=== PATIENT | female | born 1965 | race Hispanic/Latino ===

== ENCOUNTER 2017-09-23 15:43 | Inpatient (IN) | payer MEDICAID, OTHER ==
[2017-09-23 15:46] VITALS: BMI 44.1
--- NOTE | 2017-09-23 15:58 | ED PDOC ---
Arrival/HPI - General Time Seen by Provider: 09/23/17 15:45 Historian: Patient - History of Present Illness Narrative History of Present Illness (Text): 09/23/17 15:54 This 52 yo female with pmh asthma, smoker, obesity, presents to this ED c/o sob , wheezing x 3 days. Patient stated her symptoms have worsen today. Patient has been using home albuterol nebulizer. Patient admits smoking cigarettes. Patient denies fever, cp, abdominal pain, recent travel, sick contact, leg swelling, calf pain, dizziness, or abnormal gait. Patient stated she has never been intubated for asthma. Patient stated she has multiple hospital admission for asthma. Time/Duration: Other (see hpi) Context: Home Past Medical History - Provider Review Nursing Documentation Reviewed: Yes Family/Social History - Physician Review Nursing Documentation Reviewed: Yes Family/Social History: Other (noncontributory) Allergies/Home Meds Allergies/Adverse Reactions: Allergies No Known Allergies Allergy (Verified 09/23/17 15:45) Home Medications: Home Meds Medication Instructions Recorded Confirmed Albuterol 0.083% [Albuterol 3 ml IH PRN PRN 09/23/17 09/23/17 Sulfate 3 Ml] Albuterol HFA [Ventolin HFA 90 1 unit NEB PRN PRN 09/23/17 09/23/17 mcg/actuation (8 g)] Review of Systems - Review of Systems Constitutional: Normal. absent: Fatigue, Weight Change, Fevers, Night Sweats Eyes: Normal ENT: Normal Respiratory: SOB, Cough, Wheezing. absent: Sputum Cardiovascular: Normal. absent: Chest Pain, Palpitations Gastrointestinal: Normal. absent: Abdominal Pain, Nausea, Vomiting Genitourinary Female: Normal. absent: Dysuria, Frequency, Hematuria Musculoskeletal: Normal. absent: Back Pain Skin: Normal. absent: Rash Neurological: Normal. absent: Headache, Dizziness, Focal Weakness, Gait Changes , Speech Changes, Facial Droop, Disequilibrium, Seizure Endocrine: Normal Hemo/Lymphatic: Normal Psychiatric: Normal Physical Exam Vital Signs Temp Pulse Resp BP Pulse Ox 09/23/17 20:46 91 H 18 164/92 H 91 L 09/23/17 17:30 97.8 F 18 150/90 92 L 09/23/17 15:45 98.7 F 89 18 100/66 96 Temperature: Afebrile Blood Pressure: Normal Pulse: Regular Respiratory Rate: Normal Appearance: Positive for: Well-Appearing, Non-Toxic, Comfortable Pain Distress: None Mental Status: Positive for: Alert and Oriented X 3 - Systems Exam Head: Present: Atraumatic, Normocephalic Pupils: Present: PERRL Extroacular Muscles: Present: EOMI Conjunctiva: Present: Normal Mouth: Present: Moist Mucous Membranes Neck: Present: Normal Range of Motion. No: Meningeal Signs, MIDLINE TENDERNESS , Paraspinal Tenderness, Lymphadenopathy Respiratory/Chest: Present: Wheezes, Decreased Breath Sounds. No: Respiratory Distress, Accessory Muscle Use, Rales, Retracting, Rhonchi, Tachypneic, Tender to Palpation Cardiovascular: Present: Regular Rate and Rhythm, Normal S1, S2. No: Murmurs Abdomen: Present: Normal Bowel Sounds, Other (obese). No: Tenderness, Distention, Peritoneal Signs Back: Present: Normal Inspection Upper Extremity: Present: Normal Inspection, Normal ROM. No: Cyanosis, Edema Lower Extremity: Present: Normal Inspection, Normal ROM. No: Edema Neurological: Present: GCS=15, CN II-XII Intact, Speech Normal Skin: Present: Warm, Dry, Normal Color. No: Rashes Psychiatric: Present: Alert, Oriented x 3, Normal Insight, Normal Concentration Medical Decision Making ED Course and Treatment: 09/23/17 21:02 Patient stated she still feels wheezing. 09/23/17 21:[address] Elba Guzman regarding patient asthma exacerbation. Patient continues symptoms despite treatment. Dr. Guzman agreed with plan for observation. She recommended to order an ABG. 09/23/17 21:13 Patient agrees with plan for observation Re-evaluation Time: 21:14 Reassessment Condition: Re-examined, Improving,but remains with symptoms - Lab Interpretations Lab Results: 09/23/17 20:01 09/23/17 20:01 Lab Results 09/23/17 20:01: Sodium 133, Potassium 3.8, Chloride 98, Carbon Dioxide 25, Anion Gap 14, BUN 15, Creatinine 0.6 L, Est GFR ( Amer) > 60, Est GFR ( Non-Af Amer) > 60, Random Glucose 281 H, Calcium 9.0, Total Bilirubin 0.3, AST 30, ALT 38, Alkaline Phosphatase 84, Total Protein 7.3, Albumin 4.1, Globulin 3.2, Albumin/Globulin Ratio 1.3 09/23/17 20:01: WBC 7.4, RBC 4.51, Hgb 13.5, Hct 41.6, MCV 92.2, MCH 29.9, MCHC 32.5, RDW 13.5, Plt Count 208, MPV 10.4, Gran % 88.0 H, Lymph % (Auto) 10.4 L, [place] % (Auto) 1.2, Eos % (Auto) 0.0 L, Baso % (Auto) 0.4, Gran # 6.54 H, Lymph # 0.8 L, [place] # 0.1, Eos # 0.0, Baso # 0.03 I have reviewed the lab results: Yes Interpretation: No clinic. lab abnormalty - RAD Interpretation Narrative RAD Interpretations (Text): 09/23/17 16:35 HISTORY: wheezing, cough COMPARISON: No prior. FINDINGS: LUNGS: The lungs are well inflated. There are increased streaky opacities in the lungs and bibasilar atelectasis. No focal consolidation. PLEURA: No significant pleural effusion identified, no pneumothorax apparent. CARDIOVASCULAR: Normal. OSSEOUS STRUCTURES: No significant abnormalities. VISUALIZED UPPER ABDOMEN: Normal. OTHER FINDINGS: None. IMPRESSION: Findings are most compatible with reactive small airway disease/ viral/ atypical pneumonitis. No lobar pneumonia. Radiology Orders: 09/23/17 15:53 CHEST PORTABLE [RAD] Stat - Medication Orders Current Medication Orders: Discontinued Medications Albuterol/Ipratropium (Duoneb 3 Mg/0.5 Mg (3 Ml) Ud) 3 ml IH Q15M RAI Stop: 09/23/17 16:31 Last Admin: 09/23/17 17:00 Dose: 3 ml Magnesium Sulfate 2 gm/ Sodium (Chloride) 104 mls @ 102 mls/hr IVPB ONCE ONE Stop: 09/23/17 19:20 Last Admin: 09/23/17 19:01 Dose: 102 mls/hr eMAR Start Stop Document 09/23/17 19:01 MS (Rec: 09/23/17 19:01 MS [id number]) Intravenous Solution Start Date 09/23/17 Start Time 19:01 End Date 09/23/17 End time 19:31 Total Infusion Time 30 Methylprednisolone (Solu-Medrol) 125 mg IVP STAT STA Stop: 09/23/17 15:53 Last Admin: 09/23/17 16:22 Dose: 125 mg IVP Administration Document 09/23/17 16:22 MS (Rec: 09/23/17 16:22 MS [id number]) Charges for Administration # of IVP Administrations 1 Disposition/Present on Arrival - Present on Arrival Any Indicators Present on Arrival: No History of DVT/PE: No History of Uncontrolled Diabetes: No Urinary Catheter: No History of Decub. Ulcer: No - Disposition Have Diagnosis and Disposition been Completed?: Yes Diagnosis: Asthma exacerbation Disposition: HOSPITALIZED Disposition Time: 21:15 Patient Plan: Observation Condition: STABLE Referrals: Dimitri Nino MD [Primary Care Provider] - Follow up with primary
[2017-09-23] MEDS: Albuterol-Ipratrop 3 mg / 0.5 (3 ml) UD IH SCH ×3 (16:22→17:00)
--- NOTE | 2017-09-23 16:34 | RAD ---
HISTORY: wheezing, cough COMPARISON: No prior. FINDINGS: LUNGS: The lungs are well inflated. There are increased streaky opacities in the lungs and bibasilar atelectasis. No focal consolidation. PLEURA: No significant pleural effusion identified, no pneumothorax apparent. CARDIOVASCULAR: Normal. OSSEOUS STRUCTURES: No significant abnormalities. VISUALIZED UPPER ABDOMEN: Normal. OTHER FINDINGS: None. IMPRESSION: Findings are most compatible with reactive small airway disease/ viral/ atypical pneumonitis. No lobar pneumonia.
[2017-09-23] MEDS ORDERED: Magnesium Sulfate 2 GM in Sodium Chloride 0.9% 100 ML IVPB ONE (18:19)
[2017-09-23 20:16] LABS: BASO # 0.03 K/mm3 (0.0-2.0); BASO % 0.4 % (0.0-3.0); GRAN # 6.54 (1.4-6.5); HEMOGLOBIN 13.5 g/dL (12.0-16.0); LYMPH # 0.8 (1.2-3.4); LYMPH % 10.4 % (22.0-35.0); MEAN CELL VOLUME 92.2 fl (80.0-105.0); MEAN CORPUSCULAR HEMOGLOBIN 29.9 pg (25.0-35.0); MEAN CORPUSCULAR HGB CONC 32.5 g/dl (31.0-37.0); MEAN PLATELET VOLUME 10.4 fl (7.0-11.0); MONO # 0.1 (0.1-0.6); MONO % 1.2 % (1.0-6.0); RBC 4.51 10^6/uL (3.5-6.1); RED CELL DISTRIBUTION WIDTH 13.5 % (11.5-14.5); WHITE BLOOD COUNT 7.4 10^3/ul (4.5-11.0)
[2017-09-23 20:30] LABS: ALB/GLOB RATIO 1.3 (1.1-1.8); ALBUMIN 4.1 g/dL (3.0-4.8); ALT/SGPT 38 U/L (7-56); AST/SGOT 30 U/L (14-36); BLOOD UREA NITROGEN 15 mg/dL (7-21); GFR AFRICAN-AMERICAN > 60; GFR NON-AFRICAN AMERICAN > 60
--- NOTE | 2017-09-23 21:33 | CP.PCM.HP ---
History of Present Illness - History of Present Illness History of Present Illness: CC: SOB Subjective: HPI: Patient is a 52 year old female with a past medical history of asthma who presents to the emergency department for evaluation and treatment of SOB which began 6 days ago after moving from [place]. States that she believes the cold weather triggered her asthma to worsen. Associated with productive cough with clear sputum production which has worsened and become yellow since onset. States that her home albuterol and medrol dose pack have not improved her symptoms. She was advised to come to the ED by her primary care physician after finding her oxygen saturation being in the low 90s. Patient denies intractable headache, fever, chills, dizziness, blurry vision, ringing in the ears, chest pain, abdominal pain, nausea, vomiting, diarrhea, constipation, and urinary symptoms. ROS: 12 point review of systems negative except as indicated in HPI PMHx: asthma and osteoporosis PSHx: tubal ligation and hysterectomy Family Hx: noncontributory Social Hx: social ETOH use, quit tobacco use 2 days ago, smoked 1/3 ppd for 35 years, former marijuana user Medications: Please see medication reconciliation PMD: Dr. Nino Physical Examination: - Constitutional Appears: Non-toxic, No Acute Distress - Head Exam Head Exam: atraumatic, normocephalic - Eye Exam Eye Exam: Normal appearance, PERRL. absent: Scleral icterus - ENT Exam ENT Exam: Mucous Membranes Moist - Neck Exam Neck exam: Normal Inspection - Respiratory Exam Respiratory Exam: diminished breath sounds bilaterally - Cardiovascular Exam Cardiovascular Exam: +S1, +S2. absent: Gallop, JVD - GI/Abdominal Exam GI & Abdominal Exam: Normal Bowel Sounds, absent: Distended, Guarding, Pulsatile Mass, Rebound, Rigid - Extremities Exam Extremities exam: Negative for: calf tenderness - Neurological Exam Neurological exam: Patient is awake, alert, responds to verbal stimuli, answers questions appropriately, follows commands, and moves extremities past midline - Psychiatric Exam Psychiatric exam: Normal Affect, Normal Mood - Skin Skin Exam: warm and dry Assessment and Plan: Patient is a 52 year old female with past medical history of asthma who was admitted for evaluation and treatment of SOB. Acute on Chronic Asthma Exacerbation - duobnebs q6 scheduled - duonebs q2 prn SOB - solumedrol 40mg IV q12 - oxygen supplementation 2 L via NC - azithromycin - claritin - abg pending Tobacco Abuse - nicotine patch offered - smoking cessation advised - patient education provided on dangers of tobacco abuse Prophylaxis - DVT ppx- scds - GI ppx- famotidine Patient case discussed with and plan approved by attending physician. Present on Admission - Present on Admission Any Indicators Present on Admission: No Past Patient History - Past Social History Smoking Status: Light Smoker < 10 Cigarettes Daily - CARDIAC Hx Cardiac Disorders: No - PULMONARY Hx Respiratory Disorders: Yes Hx Asthma: Yes - PSYCHIATRIC Hx Substance Use: No - SURGICAL HISTORY Hx Surgeries: Yes Hx Hysterectomy: Yes Hx Tubal Ligation: Yes - ANESTHESIA Hx Anesthesia: Yes Hx Anesthesia Reactions: No Hx Malignant Hyperthermia: No Meds Allergies/Adverse Reactions: Allergies Allergy/AdvReac Type Severity Reaction Status Date / Time No Known Allergies Allergy Verified 09/23/17 15:45 Results - Vital Signs Recent Vital Signs: Last Vital Signs Temp 97.8 F 09/23/17 17:30 Pulse 91 H 09/23/17 20:46 Resp 18 09/23/17 20:46 BP 164/92 H 09/23/17 20:46 Pulse Ox 91 L 09/23/17 20:46 - Labs Result Diagrams: 09/23/17 20:01 09/23/17 20:01 Labs: Laboratory Results - last 24 hr 09/23/17 09/23/17 20:01 20:01 WBC 7.4 RBC 4.51 Hgb 13.5 Hct 41.6 MCV 92.2 MCH 29.9 MCHC 32.5 RDW 13.5 Plt Count 208 MPV 10.4 Gran % 88.0 H Lymph % (Auto) 10.4 L [place] % (Auto) 1.2 Eos % (Auto) 0.0 L Baso % (Auto) 0.4 Gran # 6.54 H Lymph # 0.8 L [place] # 0.1 Eos # 0.0 Baso # 0.03 Sodium 133 Potassium 3.8 Chloride 98 Carbon Dioxide 25 Anion Gap 14 BUN 15 Creatinine 0.6 L Est GFR ( Amer) > 60 Est GFR (Non-Af Amer) > 60 Random Glucose 281 H Calcium 9.0 Total Bilirubin 0.3 AST 30 ALT 38 Alkaline Phosphatase 84 Total Protein 7.3 Albumin 4.1 Globulin 3.2 Albumin/Globulin Ratio 1.3
[2017-09-23] MEDS ORDERED: Albuterol-Ipratrop 3 mg / 0.5 (3 ml) UD IH PRN (22:03)
[2017-09-23 22:07] LABS: ARTERIAL BLOOD GAS HCO3 23.4 mmol/L (21-28); ARTERIAL BLOOD GAS HEMOGLOBIN 12.4 g/dL (11.7-17.4); ARTERIAL BLOOD GAS O2 CONTENT 16.4 ML/dl (15-23); ARTERIAL BLOOD GAS O2 SAT 96.2 % (95-98); ARTERIAL BLOOD GAS PCO2 36 mm/Hg (35-45); ARTERIAL BLOOD GAS PH 7.42 (7.35-7.45); ARTERIAL BLOOD GAS TCO2 24.5 mmol.L (22-28)
[2017-09-24] MEDS ORDERED: Promethazine/Cod 6.25mg-10mg/5ml Syr UD PO STA (00:34)
[2017-09-24] MEDS: Albuterol-Ipratrop 3 mg / 0.5 (3 ml) UD IH SCH ×4 (02:15→21:49)
[2017-09-24 07:45] LABS: BASO # 0.01 K/mm3 (0.0-2.0); BASO % 0.1 % (0.0-3.0); GRAN # 5.58 (1.4-6.5); GRAN % 71.6 % (50.0-68.0); HEMOGLOBIN 13.4 g/dL (12.0-16.0); LYMPH # 1.5 (1.2-3.4); LYMPH % 19.3 % (22.0-35.0); MEAN CELL VOLUME 91.9 fl (80.0-105.0); MEAN CORPUSCULAR HEMOGLOBIN 29.5 pg (25.0-35.0); MEAN CORPUSCULAR HGB CONC 32.1 g/dl (31.0-37.0); MEAN PLATELET VOLUME 10.6 fl (7.0-11.0); MONO # 0.7 (0.1-0.6); RBC 4.55 10^6/uL (3.5-6.1); RED CELL DISTRIBUTION WIDTH 13.6 % (11.5-14.5); WHITE BLOOD COUNT 7.8 10^3/ul (4.5-11.0)
[2017-09-24 07:59] LABS: ALB/GLOB RATIO 1.2 (1.1-1.8); ALBUMIN 4.1 g/dL (3.0-4.8); ALT/SGPT 33 U/L (7-56); AST/SGOT 26 U/L (14-36); BLOOD UREA NITROGEN 14 mg/dL (7-21); CALCIUM 9.4 mg/dL (8.4-10.5); GFR AFRICAN-AMERICAN > 60; GFR NON-AFRICAN AMERICAN > 60
[2017-09-24 09:42] VITALS: RESP 20
[2017-09-24] MEDS: Benzocaine/Menthol (Cepacol) Lozenge MT PRN ×2 (10:49→15:19)
[2017-09-24] MEDS: cefTRIAXone 1 gm 1 GM/100 ML BAG IVPB SCH (10:49)
[2017-09-24] MEDS: MethylPREDNISolone 40 mg Vial IVP SCH ×2 (10:49→22:09)
[2017-09-24] MEDS: guaiFENesin 200 mg/10 ml Syrup UD PO PRN ×3 (10:49→22:09)
--- NOTE | 2017-09-24 14:12 | CP.PCM.PN ---
<Nico Dumont - Last Filed: 09/24/17 14:36> Subjective - Date & Time of Evaluation Date of Evaluation: 09/24/17 Time of Evaluation: 14:07 - Subjective Subjective: MEDICINE PROGRESS NOTE Patient seen and assessed at bedside. Patient reports that her presenting SOB has mildly improved but that her non-productive cough with associated chest wall tenderness and throat irritation have persisted since the effects of the cough medication provided in the ED were no longer noticeable. Otherwise, patient has no new complaints. She denies fever, chills, headache, changes in his vision, palpitations, syncope, dizziness, sputum production, hemoptysis, abdominal pain, N/V, burning/pain with urination, skin changes or any numbness/ tingling/weakness of any extremity. Objective - Vital Signs/Intake and Output Vital Signs (last 24 hours): Temp Pulse Resp BP Pulse Ox 98.6 F 90 20 152/83 H 90 L 09/24/17 08:00 09/24/17 08:00 09/24/17 08:00 09/24/17 08:00 09/24/17 08:00 - Medications Medications: Current Medications Acetaminophen (Tylenol 325mg Tab) 650 mg PO Q4H PRN PRN Reason: Fever >100.4 F Acetaminophen (Tylenol 325mg Tab) 650 mg PO Q4 PRN PRN Reason: Pain, moderate (4-7) Acetylcysteine (Acetylcysteine 20%) 4 ml IH [id number] [facility] Stop: 09/25/17 08:01 Albuterol/Ipratropium (Duoneb 3 Mg/0.5 Mg (3 Ml) Ud) 3 ml IH [id number] [facility] Last Admin: 09/24/17 08:13 Dose: 3 ml Albuterol/Ipratropium (Duoneb 3 Mg/0.5 Mg (3 Ml) Ud) 3 ml IH Q2H PRN PRN Reason: Shortness of Breath Last Admin: 09/24/17 01:17 Dose: 3 ml Azithromycin (Zithromax) 500 mg PO DAILY RAI PRN Reason: Protocol Last Admin: 09/24/17 10:49 Dose: 500 mg Benzocaine/Menthol (Cepacol Sore Throat) 1 chiquis MT Q2H PRN PRN Reason: Sore Throat Last Admin: 09/24/17 10:49 Dose: 1 chiquis Famotidine (Pepcid) 40 mg PO HS RAI Guaifenesin (Robitussin) 200 mg PO Q4H PRN PRN Reason: Cough and congestion Last Admin: 09/24/17 10:49 Dose: 200 mg Ceftriaxone Sodium (Rocephin 1 Gram Ivpb) 1 gm in 100 mls @ 100 mls/hr IVPB DAILY RAI PRN Reason: Protocol Last Admin: 09/24/17 10:49 Dose: 100 mls/hr Ibuprofen (Motrin Tab) 400 mg PO Q6H PRN PRN Reason: Pain, moderate (4-7) Loratadine (Claritin) 10 mg PO DAILY RAI Methylprednisolone (Solu-Medrol) 40 mg IVP Q12 RAI Last Admin: 09/24/17 10:49 Dose: 40 mg Nicotine (Nicoderm Cq) 1 patch TD DAILY PRN PRN Reason: URGE TO SMOKE - Constitutional Appears: Non-toxic - Head Exam Head Exam: ATRAUMATIC, NORMAL INSPECTION, NORMOCEPHALIC - Eye Exam Eye Exam: EOMI, Normal appearance, PERRL Pupil Exam: NORMAL ACCOMODATION, PERRL - ENT Exam ENT Exam: Mucous Membranes Moist, Normal Exam - Neck Exam Neck Exam: Full ROM, Normal Inspection. absent: Lymphadenopathy - Respiratory Exam Respiratory Exam: Accessory Muscle Use, Chest Wall Tenderness, Wheezes ( Espiratory; Diffuse). absent: Decreased Breath Sounds, Clear to Ausculation Bilateral, Prolonged Expiratory Phase, Rales, Rhonchi, Respiratory Distress, Stridor, NORMAL BREATHING PATTERN - Cardiovascular Exam Cardiovascular Exam: REGULAR RHYTHM, RRR, +S1, +S2. absent: Bradycardia, Tachycardia, Clicks, Diastolic murmur, Gallop, Irregular Rhythm, JVD, Rubs, +S4 , Murmur - GI/Abdominal Exam GI & Abdominal Exam: Soft, Normal Bowel Sounds. absent: Bruit, Distended, Firm , Guarding, Rigid, Tenderness, Diminished Bowel Sounds, Hernia, Hyperactive Bowel Sounds, Hypoactive Bowel Sounds, Organomegaly, Pulsatile Mass, Rebound, Mass - Extremities Exam Extremities Exam: Full ROM, Normal Capillary Refill, Normal Inspection. absent : Calf Tenderness, Joint Swelling, Pedal Edema, Tenderness - Back Exam Back Exam: Full ROM, NORMAL INSPECTION. absent: CVA tenderness (L), CVA tenderness (R), muscle spasm, paraspinal tenderness, rash noted, tenderness, vertebral tenderness - Neurological Exam Neurological Exam: Alert, Awake, CN II-XII Intact, Oriented x3 - Psychiatric Exam Psychiatric exam: Normal Affect, Normal Mood - Skin Skin Exam: Dry, Intact, Normal Color, Warm Assessment and Plan - Assessment and Plan (Free Text) Assessment: Patient is a 52 year old female with past medical history of asthma who was admitted for evaluation and treatment of SOB likely secondary to an exacerbation of her asthma. Plan: 1. Acute Asthma Exacerbation -Chest X-Ray showing increased streaky opacities in the lungs with bibasilar atelectasis, most compatible with reactive small airway disease or possible viral/atypical pneumonitis -ABG showing mild hypoxia on room air -Sputum cultures pending -IV Zithromax and Rocephin for empiric coverage -Duonebs Q6RESP RAI and Q2RESP PRN -IV Solu-Medrol 40mg IV Q12H -Acetylcysteine 20% [id number] (4 doses) -Singulair, Claritin and Pepcid PO -Robitussin PRN for cough and Motrin PRN for pain associated with cough -Cepacol chiquis PRN for throat irritation -Tylenol PRN for fever -Continue supplemental oxygen via NC at 2L/min 2. Tobacco Abuse -Nicotine patch PRN -Patient education provided of harmful effects of tobacco use and smoking cessation strongly advised with patient verbalizing understanding GI Prophylaxis: Pepcid DVT Prophylaxis: SCD's Diet: Heart Healthy Patient seen and case discussed with attending, Dr. Guzman. <Amarilis Guzman - Last Filed: 09/24/17 15:09> Objective - Vital Signs/Intake and Output Vital Signs (last 24 hours): Temp Pulse Resp BP Pulse Ox 98.6 F 90 20 152/83 H 90 L 09/24/17 08:00 09/24/17 08:00 09/24/17 08:00 09/24/17 08:00 09/24/17 08:00 - Medications Medications: Current Medications Acetaminophen (Tylenol 325mg Tab) 650 mg PO Q4H PRN PRN Reason: Fever >100.4 F Acetaminophen (Tylenol 325mg Tab) 650 mg PO Q4 PRN PRN Reason: Pain, moderate (4-7) Acetylcysteine (Acetylcysteine 20%) 4 ml IH [id number] RAI Stop: 09/25/17 08:01 Last Admin: 09/24/17 14:14 Dose: Not Given Albuterol/Ipratropium (Duoneb 3 Mg/0.5 Mg (3 Ml) Ud) 3 ml IH [id number] [facility] Last Admin: 09/24/17 14:10 Dose: 3 ml Albuterol/Ipratropium (Duoneb 3 Mg/0.5 Mg (3 Ml) Ud) 3 ml IH Q2H PRN PRN Reason: Shortness of Breath Last Admin: 09/24/17 01:17 Dose: 3 ml Azithromycin (Zithromax) 500 mg PO DAILY RAI PRN Reason: Protocol Last Admin: 09/24/17 10:49 Dose: 500 mg Benzocaine/Menthol (Cepacol Sore Throat) 1 chiquis MT Q2H PRN PRN Reason: Sore Throat Last Admin: 09/24/17 10:49 Dose: 1 chiquis Famotidine (Pepcid) 40 mg PO HS [facility] Guaifenesin (Robitussin) 200 mg PO Q4H PRN PRN Reason: Cough and congestion Last Admin: 09/24/17 10:49 Dose: 200 mg Ceftriaxone Sodium (Rocephin 1 Gram Ivpb) 1 gm in 100 mls @ 100 mls/hr IVPB DAILY [facility] PRN Reason: Protocol Last Admin: 09/24/17 10:49 Dose: 100 mls/hr Ibuprofen (Motrin Tab) 400 mg PO Q6H PRN PRN Reason: Pain, moderate (4-7) Loratadine (Claritin) 10 mg PO DAILY [facility] Methylprednisolone (Solu-Medrol) 40 mg IVP Q12 [facility] Last Admin: 09/24/17 10:49 Dose: 40 mg Montelukast Sodium (Singulair) 10 mg PO HS [facility] Nicotine (Nicoderm Cq) 1 patch TD DAILY PRN PRN Reason: URGE TO SMOKE Attending/Attestation - Attestation I have personally seen and examined this patient.: Yes I have fully participated in the care of the patient.: Yes I have reviewed all pertinent clinical information, including history, physical exam and plan: Yes Notes (Text): I have seen and examined the patient at bedside. Agree with the above note with the following additions/ exceptions: Briefly this is 52 year old female with history of asthma, tobacco use who failed outpatient asthma treatment who was admitted for asthma/ COPD exacerbation. Patient still not able to take deep breath and has bilateral wheezing. Continue duonebs, solumedrol, zithromax and add rocephin, robitussin, mucomyst and singulair. Tobacco cessation counselling provided. Upon discharge patient will follow up with Dr Nino. Dr Amarilis Guzman
[2017-09-24] MEDS: Acetylcysteine 20% Inhal Soln (4ml) IH SCH ×2 (14:14→21:41)
[2017-09-25] MEDS: Albuterol-Ipratrop 3 mg / 0.5 (3 ml) UD IH SCH ×5 (01:44→21:15)
[2017-09-25] MEDS: Acetylcysteine 20% Inhal Soln (4ml) IH SCH ×2 (01:44→08:13)
[2017-09-25 07:24] LABS: BASO # 0.04 K/mm3 (0.0-2.0); BASO % 0.4 % (0.0-3.0); GRAN # 7.84 (1.4-6.5); GRAN % 74.9 % (50.0-68.0); HEMOGLOBIN 13.8 g/dL (12.0-16.0); LYMPH % 19.2 % (22.0-35.0); MEAN CELL VOLUME 92.1 fl (80.0-105.0); MEAN CORPUSCULAR HEMOGLOBIN 29.4 pg (25.0-35.0); MEAN CORPUSCULAR HGB CONC 31.9 g/dl (31.0-37.0); MEAN PLATELET VOLUME 10.8 fl (7.0-11.0); MONO # 0.6 (0.1-0.6); MONO % 5.5 % (1.0-6.0); RBC 4.69 10^6/uL (3.5-6.1); RED CELL DISTRIBUTION WIDTH 13.7 % (11.5-14.5); WHITE BLOOD COUNT 10.5 10^3/ul (4.5-11.0)
[2017-09-25 07:48] LABS: ALB/GLOB RATIO 1.2 (1.1-1.8); ALBUMIN 4.2 g/dL (3.0-4.8); ALT/SGPT 35 U/L (7-56); AST/SGOT 33 U/L (14-36); BLOOD UREA NITROGEN 19 mg/dL (7-21); CALCIUM 9.6 mg/dL (8.4-10.5); GFR AFRICAN-AMERICAN > 60; GFR NON-AFRICAN AMERICAN > 60
[2017-09-25] MEDS: Benzocaine/Menthol (Cepacol) Lozenge MT PRN ×3 (09:19→23:03)
[2017-09-25] MEDS: cefTRIAXone 1 gm 1 GM/100 ML BAG IVPB SCH (09:20)
[2017-09-25] MEDS: guaiFENesin 200 mg/10 ml Syrup UD PO PRN ×3 (09:20→23:02)
[2017-09-25] MEDS: MethylPREDNISolone 40 mg Vial IVP SCH ×2 (09:21→23:01)
--- NOTE | 2017-09-25 11:35 | CP.PCM.PN ---
<Nico Dumont - Last Filed: 09/25/17 11:31> Subjective - Date & Time of Evaluation Date of Evaluation: 09/25/17 Time of Evaluation: 11:31 - Subjective Subjective: MEDICINE PROGRESS NOTE Patient seen and assessed at bedside. No acute events were noted overnight by nursing staff or patient. Patient endorses that her SOB, cough and chest tightness have resolved to a significant degree with current therapy. She reports that she has started to produce more sputum and this has "helped open up her airway". She describes this as a thick yellow sputum with no reports of dark black, brown or red colored sputum. She denies fever, chills, headache, changes in his vision, chest tightness, palpitations, syncope, dizziness, hemoptysis, abdominal pain, N/V, burning/pain with urination, skin changes or any numbness/tingling/weakness of any extremity. Objective - Vital Signs/Intake and Output Vital Signs (last 24 hours): Temp Pulse Resp BP Pulse Ox 97.7 F 86 20 158/86 H 94 L 09/25/17 07:30 09/25/17 07:30 09/25/17 07:30 09/25/17 07:30 09/25/17 07:30 Intake and Output: 09/25/17 09/25/17 06:59 18:59 Intake Total 600 360 Balance 600 360 - Medications Medications: Current Medications Acetaminophen (Tylenol 325mg Tab) 650 mg PO Q4H PRN PRN Reason: Fever >100.4 F Acetaminophen (Tylenol 325mg Tab) 650 mg PO Q4 PRN PRN Reason: Pain, moderate (4-7) Albuterol/Ipratropium (Duoneb 3 Mg/0.5 Mg (3 Ml) Ud) 3 ml IH Q2H PRN PRN Reason: Shortness of Breath Last Admin: 09/24/17 01:17 Dose: 3 ml Albuterol/Ipratropium (Duoneb 3 Mg/0.5 Mg (3 Ml) Ud) 3 ml IH [id number] RAI Azithromycin (Zithromax) 500 mg PO DAILY RAI PRN Reason: Protocol Last Admin: 09/25/17 09:20 Dose: 500 mg Benzocaine/Menthol (Cepacol Sore Throat) 1 chiquis MT Q2H PRN PRN Reason: Sore Throat Last Admin: 09/25/17 09:19 Dose: 1 chiquis Famotidine (Pepcid) 40 mg PO HS [facility] Last Admin: 09/24/17 22:09 Dose: 40 mg Guaifenesin (Robitussin) 200 mg PO Q4H PRN PRN Reason: Cough and congestion Last Admin: 09/25/17 09:20 Dose: 200 mg Ceftriaxone Sodium (Rocephin 1 Gram Ivpb) 1 gm in 100 mls @ 100 mls/hr IVPB DAILY [facility] PRN Reason: Protocol Last Admin: 09/25/17 09:20 Dose: 100 mls/hr Ibuprofen (Motrin Tab) 400 mg PO Q6H PRN PRN Reason: Pain, moderate (4-7) Loratadine (Claritin) 10 mg PO DAILY [facility] Last Admin: 09/25/17 09:20 Dose: 10 mg Methylprednisolone (Solu-Medrol) 40 mg IVP Q12 [facility] Last Admin: 09/25/17 09:21 Dose: 40 mg Montelukast Sodium (Singulair) 10 mg PO [facility] Last Admin: 09/24/17 22:13 Dose: 10 mg Nicotine (Nicoderm Cq) 1 patch TD DAILY PRN PRN Reason: URGE TO SMOKE Last Admin: 09/24/17 15:19 Dose: 1 patch Sodium Chloride ([place] Nasal [place]) 1 ml NS Q2H PRN PRN Reason: Nasal congestion Last Admin: 09/25/17 09:20 Dose: 1 spr - Labs Labs: 09/25/17 06:15 09/25/17 06:15 - Constitutional Appears: Non-toxic, No Acute Distress - Head Exam Head Exam: ATRAUMATIC, NORMAL INSPECTION, NORMOCEPHALIC - Eye Exam Eye Exam: EOMI, Normal appearance, PERRL Pupil Exam: NORMAL ACCOMODATION, PERRL - ENT Exam ENT Exam: Mucous Membranes Moist, Normal Exam, Normal External Ear Exam, Normal Oropharynx - Neck Exam Neck Exam: Full ROM, Normal Inspection. absent: Lymphadenopathy, Meningismus - Respiratory Exam Respiratory Exam: Wheezes (Expiratory; diffuse bilaterally). absent: Accessory Muscle Use, Chest Wall Tenderness, Decreased Breath Sounds, Clear to Ausculation Bilateral, Prolonged Expiratory Phase, Rales, Rhonchi, Respiratory Distress, Stridor, NORMAL BREATHING PATTERN - Cardiovascular Exam Cardiovascular Exam: REGULAR RHYTHM, RRR, +S1, +S2. absent: Bradycardia, Tachycardia, Clicks, Diastolic murmur, Gallop, Irregular Rhythm, JVD, Rubs, +S4 , Murmur - GI/Abdominal Exam GI & Abdominal Exam: Soft, Normal Bowel Sounds. absent: Bruit, Distended, Firm , Guarding, Rigid, Tenderness, Diminished Bowel Sounds, Hernia, Hyperactive Bowel Sounds, Hypoactive Bowel Sounds, Organomegaly, Pulsatile Mass, Rebound, Mass - Extremities Exam Extremities Exam: Full ROM, Normal Capillary Refill, Normal Inspection. absent : Calf Tenderness, Joint Swelling, Pedal Edema, Tenderness - Back Exam Back Exam: Full ROM, NORMAL INSPECTION. absent: CVA tenderness (L), CVA tenderness (R), muscle spasm, paraspinal tenderness, rash noted, tenderness, vertebral tenderness - Neurological Exam Neurological Exam: Alert, Awake, CN II-XII Intact, Normal Gait, Oriented x3 - Psychiatric Exam Psychiatric exam: Normal Affect, Normal Mood - Skin Skin Exam: Dry, Intact, Normal Color, Warm Assessment and Plan - Assessment and Plan (Free Text) Assessment: Patient is a 52 year old female with past medical history of asthma who was admitted for evaluation and treatment of SOB likely secondary to an exacerbation of her asthma with failed outpatient therapy. Patients respiratory status and exam have improved, however there continues to be bilateral wheezing. Plan: 1. Acute Asthma Exacerbation -Chest X-Ray showing increased streaky opacities in the lungs with bibasilar atelectasis, most compatible with reactive small airway disease or possible viral/atypical pneumonitis -ABG showing mild hypoxia on room air -Sputum cultures pending -IV Zithromax and Rocephin for empiric coverage -Duonebs Q4RESP RAI and Q2RESP PRN -Continue IV Solu-Medrol 40mg IV Q12H; Dose will be tapered as patients respiratory status improves -Completed 4 doses of Acetylcysteine 20% -Continue Singulair, Claritin and Pepcid PO -Robitussin PRN for cough and Motrin PRN for pain associated with cough -Cepacol chiquis PRN for throat irritation -Tylenol PRN for fever -Continue supplemental oxygen via NC at 2L/min 2. Tobacco Abuse -Nicotine patch PRN -Patient education provided of harmful effects of tobacco use and smoking cessation strongly advised with patient verbalizing understanding GI Prophylaxis: Pepcid DVT Prophylaxis: SCD's Diet: Heart Healthy Patient seen and case discussed with attending, Dr. Guzman. <Amarilis Guzman - Last Filed: 09/25/17 15:51> Objective - Vital Signs/Intake and Output Vital Signs (last 24 hours): Temp Pulse Resp BP Pulse Ox 97.7 F 86 20 158/86 H 94 L 09/25/17 07:30 09/25/17 07:30 09/25/17 07:30 09/25/17 07:30 09/25/17 07:30 Intake and Output: 09/25/17 09/25/17 06:59 18:59 Intake Total 600 1080 Balance 600 1080 - Medications Medications: Current Medications Acetaminophen (Tylenol 325mg Tab) 650 mg PO Q4H PRN PRN Reason: Fever >100.4 F Acetaminophen (Tylenol 325mg Tab) 650 mg PO Q4 PRN PRN Reason: Pain, moderate (4-7) Albuterol/Ipratropium (Duoneb 3 Mg/0.5 Mg (3 Ml) Ud) 3 ml IH Q2H PRN PRN Reason: Shortness of Breath Last Admin: 09/24/17 01:17 Dose: 3 ml Albuterol/Ipratropium (Duoneb 3 Mg/0.5 Mg (3 Ml) Ud) 3 ml IH [id number] RAI Last Admin: 09/25/17 13:47 Dose: Not Given Azithromycin (Zithromax) 500 mg PO DAILY RAI PRN Reason: Protocol Last Admin: 09/25/17 09:20 Dose: 500 mg Benzocaine/Menthol (Cepacol Sore Throat) 1 chiquis MT Q2H PRN PRN Reason: Sore Throat Last Admin: 09/25/17 15:10 Dose: 1 chiquis Famotidine (Pepcid) 40 mg PO HS [facility] Last Admin: 09/24/17 22:09 Dose: 40 mg Guaifenesin (Robitussin) 200 mg PO Q4H PRN PRN Reason: Cough and congestion Last Admin: 09/25/17 15:10 Dose: 200 mg Ceftriaxone Sodium (Rocephin 1 Gram Ivpb) 1 gm in 100 mls @ 100 mls/hr IVPB DAILY [facility]I PRN Reason: Protocol Last Admin: 09/25/17 09:20 Dose: 100 mls/hr Ibuprofen (Motrin Tab) 400 mg PO Q6H PRN PRN Reason: Pain, moderate (4-7) Loratadine (Claritin) 10 mg PO DAILY [facility] Last Admin: 09/25/17 09:20 Dose: 10 mg Methylprednisolone (Solu-Medrol) 40 mg IVP Q12 [facility] Last Admin: 09/25/17 09:21 Dose: 40 mg Montelukast Sodium (Singulair) 10 mg PO HS [facility] Last Admin: 09/24/17 22:13 Dose: 10 mg Nicotine (Nicoderm Cq) 1 patch TD DAILY PRN PRN Reason: URGE TO SMOKE Last Admin: 09/24/17 15:19 Dose: 1 patch Sodium Chloride ([place] Nasal [place]) 1 ml NS Q2H PRN PRN Reason: Nasal congestion Last Admin: 09/25/17 09:20 Dose: 1 spr - Labs Labs: 09/25/17 06:15 09/25/17 06:15 Attending/Attestation - Attestation I have personally seen and examined this patient.: Yes I have fully participated in the care of the patient.: Yes I have reviewed all pertinent clinical information, including history, physical exam and plan: Yes Notes (Text): I have seen and examined the patient at bedside. Agree with the above note with the following additions/ exceptions: Briefly this is 52 year old female with history of asthma, tobacco use who failed outpatient asthma treatment who was admitted for asthma/ COPD exacerbation. Patient reports that she feels slightly better. She is able to take deep breath and is not coughing as much. Still have bilateral wheezing. Denies post tussive vomiting, fever, chills or any other complaints. Continue duonebs, solumedrol, zithromax and add rocephin, robitussin , mucomyst and singulair. Tobacco cessation counselling provided. Upon discharge patient will follow up with Dr Nino. Dr Amarilis Guzman
[2017-09-26 08:05] LABS: BASO # 0.02 K/mm3 (0.0-2.0); BASO % 0.2 % (0.0-3.0); GRAN # 9.46 (1.4-6.5); GRAN % 75.3 % (50.0-68.0); HEMOGLOBIN 14.6 g/dL (12.0-16.0); LYMPH # 2.5 (1.2-3.4); LYMPH % 19.7 % (22.0-35.0); MEAN CELL VOLUME 91.9 fl (80.0-105.0); MEAN CORPUSCULAR HEMOGLOBIN 29.7 pg (25.0-35.0); MEAN CORPUSCULAR HGB CONC 32.3 g/dl (31.0-37.0); MEAN PLATELET VOLUME 10.5 fl (7.0-11.0); MONO # 0.6 (0.1-0.6); MONO % 4.8 % (1.0-6.0); RBC 4.92 10^6/uL (3.5-6.1); RED CELL DISTRIBUTION WIDTH 13.5 % (11.5-14.5); WHITE BLOOD COUNT 12.6 10^3/ul (4.5-11.0)
[2017-09-26] MEDS: Albuterol-Ipratrop 3 mg / 0.5 (3 ml) UD IH SCH ×4 (08:19→21:18)
[2017-09-26 08:20] LABS: ALB/GLOB RATIO 1.3 (1.1-1.8); ALBUMIN 4.3 g/dL (3.0-4.8); ALT/SGPT 39 U/L (7-56); AST/SGOT 36 U/L (14-36); BLOOD UREA NITROGEN 22 mg/dL (7-21); CALCIUM 9.8 mg/dL (8.4-10.5); GFR AFRICAN-AMERICAN > 60; GFR NON-AFRICAN AMERICAN > 60
--- NOTE | 2017-09-26 09:21 | CP.PCM.PN ---
<Citlalli Ervin - Last Filed: 09/26/17 14:24> Subjective - Date & Time of Evaluation Date of Evaluation: 09/26/17 Time of Evaluation: 07:30 - Subjective Subjective: Citlalli Ervin DO PGY1 - Internal Medicine Progress Note Patient seen and examined at bedside. No events overnight. Patient reports decreased wheezing and shortness of breath. No chest pain, fever, or chills. Patient reports that she has been trying to taper off her medications on her own , switching her medications to holistic remedies. Objective - Vital Signs/Intake and Output Vital Signs (last 24 hours): Temp Pulse Resp BP Pulse Ox 97.4 F L 81 20 168/61 H 99 09/26/17 08:00 09/26/17 08:00 09/26/17 08:00 09/26/17 08:00 09/26/17 08:00 Intake and Output: 09/26/17 09/26/17 06:59 18:59 Intake Total 240 Balance 240 - Medications Medications: Current Medications Acetaminophen (Tylenol 325mg Tab) 650 mg PO Q4H PRN PRN Reason: Fever >100.4 F Acetaminophen (Tylenol 325mg Tab) 650 mg PO Q4 PRN PRN Reason: Pain, moderate (4-7) Albuterol/Ipratropium (Duoneb 3 Mg/0.5 Mg (3 Ml) Ud) 3 ml IH Q2H PRN PRN Reason: Shortness of Breath Last Admin: 09/24/17 01:17 Dose: 3 ml Albuterol/Ipratropium (Duoneb 3 Mg/0.5 Mg (3 Ml) Ud) 3 ml IH [id number] [facility] Last Admin: 09/26/17 08:19 Dose: 3 ml Azithromycin (Zithromax) 500 mg PO DAILY [facility] PRN Reason: Protocol Last Admin: 09/25/17 09:20 Dose: 500 mg Benzocaine/Menthol (Cepacol Sore Throat) 1 chiquis MT Q2H PRN PRN Reason: Sore Throat Last Admin: 09/25/17 23:03 Dose: 1 chiquis Famotidine (Pepcid) 40 mg PO HS [facility] Last Admin: 09/25/17 23:03 Dose: 40 mg Guaifenesin (Robitussin) 200 mg PO Q4H PRN PRN Reason: Cough and congestion Last Admin: 09/25/17 23:02 Dose: 200 mg Ceftriaxone Sodium (Rocephin 1 Gram Ivpb) 1 gm in 100 mls @ 100 mls/hr IVPB DAILY [facility]I PRN Reason: Protocol Last Admin: 09/25/17 09:20 Dose: 100 mls/hr Ibuprofen (Motrin Tab) 400 mg PO Q6H PRN PRN Reason: Pain, moderate (4-7) Loratadine (Claritin) 10 mg PO DAILY [facility] Last Admin: 09/25/17 09:20 Dose: 10 mg Methylprednisolone (Solu-Medrol) 40 mg IVP Q12 [facility]I Last Admin: 09/25/17 23:01 Dose: 40 mg Montelukast Sodium (Singulair) 10 mg PO HS [facility] Last Admin: 09/25/17 23:02 Dose: 10 mg Nicotine (Nicoderm Cq) 1 patch TD DAILY PRN PRN Reason: URGE TO SMOKE Last Admin: 09/24/17 15:19 Dose: 1 patch Sodium Chloride ([place] Nasal [place]) 1 ml NS Q2H PRN PRN Reason: Nasal congestion Last Admin: 09/25/17 23:03 Dose: 1 spr - Labs Labs: 09/26/17 07:45 09/26/17 07:45 - Constitutional Appears: Non-toxic, No Acute Distress - Head Exam Head Exam: ATRAUMATIC, NORMOCEPHALIC - Eye Exam Eye Exam: EOMI, Normal appearance, PERRL - ENT Exam ENT Exam: Mucous Membranes Moist - Neck Exam Neck Exam: Full ROM, Normal Inspection - Respiratory Exam Respiratory Exam: Wheezes Additional comments: Shallow breaths - Cardiovascular Exam Cardiovascular Exam: REGULAR RHYTHM, +S1, +S2. absent: Tachycardia - GI/Abdominal Exam GI & Abdominal Exam: Soft, Normal Bowel Sounds. absent: Tenderness - Extremities Exam Extremities Exam: absent: Calf Tenderness, Pedal Edema - Back Exam Back Exam: NORMAL INSPECTION - Neurological Exam Neurological Exam: Alert, Awake, Oriented x3 - Psychiatric Exam Psychiatric exam: Normal Affect, Normal Mood - Skin Skin Exam: Dry, Intact, Normal Color Assessment and Plan - Assessment and Plan (Free Text) Assessment: 51 yo F with PMH of asthma who was admitted for evaluation and treatment of SOB likely secondary to an exacerbation of her asthma with failed outpatient therapy. Patients respiratory status and exam have improved, however there continues to be bilateral wheezing. Plan: 1. Acute Asthma Exacerbation -Sputum culture pending; gram stain shows gram positive cocci in clusters and in chains -IV Zithromax and Rocephin for empiric coverage -Duonebs Q4RESP RAI and Q2RESP PRN -Decrease IV Solu-Medrol to 30mg IV Q12H -Continue Singulair, Claritin and Pepcid PO -Start Flonase -Robitussin PRN for cough and Motrin PRN for pain -Cepacol chiquis PRN for throat irritation -Tylenol PRN for fever -Continue supplemental oxygen via [place] at 2L/min 2. Tobacco Abuse -Nicotine patch PRN -Patient education provided of harmful effects of tobacco use and smoking cessation strongly advised with patient verbalizing understanding GI Prophylaxis: Pepcid DVT Prophylaxis: SCD's Patient seen and case discussed with attending, Dr. Guzman. <Amarilis Guzman - Last Filed: 09/28/17 18:48> Objective - Vital Signs/Intake and Output Vital Signs (last 24 hours): Temp Pulse Resp BP Pulse Ox 98.2 F 85 20 119/64 96 09/28/17 08:44 09/28/17 08:44 09/28/17 08:44 09/28/17 08:44 09/28/17 08:44 Intake and Output: 09/28/17 09/28/17 06:59 18:59 Intake Total 540 Output Total 0 Balance 540 - Labs Labs: 09/28/17 07:30 09/28/17 07:30 Attending/Attestation - Attestation I have personally seen and examined this patient.: Yes I have fully participated in the care of the patient.: Yes I have reviewed all pertinent clinical information, including history, physical exam and plan: Yes Notes (Text): I have seen and examined the patient at bedside. Agree with the above note with the following additions/ exceptions: Briefly this is 52 year old female with history of asthma, tobacco use who failed outpatient asthma treatment who was admitted for asthma/ COPD exacerbation. Patient reports that she feels slightly better. She is still coughing a lot and is not able to take deep breaths. Still have bilateral wheezing. Denies post tussive vomiting, fever, chills or any other complaints. Continue duonebs, tapering doses of solumedrol, zithromax and add rocephin, robitussin, mucomyst and singulair. Tobacco cessation counselling provided. Upon discharge patient will follow up with Dr Nino. Dr Amarilis Guzman
[2017-09-26] MEDS: MethylPREDNISolone 40 mg Vial IVP SCH ×2 (09:58→21:28)
[2017-09-26] MEDS: cefTRIAXone 1 gm 1 GM/100 ML BAG IVPB SCH (09:58)
[2017-09-26] MEDS: guaiFENesin 200 mg/10 ml Syrup UD PO PRN ×2 (16:20→19:59)
[2017-09-26] MEDS ORDERED: DiphenhydrAMINE 50 mg/ml Inj IVP ONE (21:14)
[2017-09-26] MEDS: Fluticasone Nasal 50 mcg/Spray NS SCH (21:30)
[2017-09-27] MEDS: Albuterol-Ipratrop 3 mg / 0.5 (3 ml) UD IH SCH ×7 (02:27→23:49)
[2017-09-27] MEDS: guaiFENesin 200 mg/10 ml Syrup UD PO PRN ×4 (04:17→22:06)
[2017-09-27 07:43] LABS: BASO # 0.04 K/mm3 (0.0-2.0); BASO % 0.3 % (0.0-3.0); GRAN # 11.47 (1.4-6.5); GRAN % 73.6 % (50.0-68.0); HEMOGLOBIN 14.7 g/dL (12.0-16.0); LYMPH # 3.2 (1.2-3.4); LYMPH % 20.4 % (22.0-35.0); MEAN CELL VOLUME 91.5 fl (80.0-105.0); MEAN CORPUSCULAR HEMOGLOBIN 29.7 pg (25.0-35.0); MEAN CORPUSCULAR HGB CONC 32.5 g/dl (31.0-37.0); MEAN PLATELET VOLUME 10.4 fl (7.0-11.0); MONO # 0.9 (0.1-0.6); MONO % 5.7 % (1.0-6.0); RBC 4.95 10^6/uL (3.5-6.1); RED CELL DISTRIBUTION WIDTH 13.4 % (11.5-14.5); WHITE BLOOD COUNT 15.6 10^3/ul (4.5-11.0)
[2017-09-27 08:06] LABS: ALB/GLOB RATIO 1.3 (1.1-1.8); ALBUMIN 4.3 g/dL (3.0-4.8); ALT/SGPT 46 U/L (7-56); AST/SGOT 36 U/L (14-36); BLOOD UREA NITROGEN 23 mg/dL (7-21); CALCIUM 9.6 mg/dL (8.4-10.5); GFR AFRICAN-AMERICAN > 60; GFR NON-AFRICAN AMERICAN > 60
[2017-09-27] MEDS: Fluticasone Nasal 50 mcg/Spray NS SCH (10:24)
[2017-09-27] MEDS: cefTRIAXone 1 gm 1 GM/100 ML BAG IVPB SCH (10:25)
[2017-09-27] MEDS: MethylPREDNISolone 40 mg Vial IVP SCH ×2 (10:25→21:56)
[2017-09-27] MEDS: Benzocaine/Menthol (Cepacol) Lozenge MT PRN ×2 (10:43→17:38)
--- NOTE | 2017-09-27 17:21 | CP.PCM.PN ---
<AzizaJordanclifford - Last Filed: 09/27/17 17:16> Subjective - Date & Time of Evaluation Date of Evaluation: 09/27/17 Time of Evaluation: 07:30 - Subjective Subjective: Citlalli Ervin DO PGY1 - Internal Medicine Progress Note Patient seen and examined at bedside. No events overnight. Patient again reports decreased wheezing and shortness of breath. No chest pain, fever, or chills. She now reports that she hasn't been taking her medications for the past 7 months. Objective - Vital Signs/Intake and Output Vital Signs (last 24 hours): Temp Pulse Resp BP Pulse Ox 97.9 F 84 20 126/73 94 L 09/27/17 07:00 09/27/17 07:00 09/27/17 07:00 09/27/17 07:00 09/27/17 07:00 Intake and Output: 09/27/17 09/27/17 06:59 18:59 Intake Total 960 Output Total 0 Balance 960 - Medications Medications: Current Medications Acetaminophen (Tylenol 325mg Tab) 650 mg PO Q4H PRN PRN Reason: Fever >100.4 F Acetaminophen (Tylenol 325mg Tab) 650 mg PO Q4 PRN PRN Reason: Pain, moderate (4-7) Last Admin: 09/26/17 16:20 Dose: 650 mg Albuterol/Ipratropium (Duoneb 3 Mg/0.5 Mg (3 Ml) Ud) 3 ml IH Q2H PRN PRN Reason: Shortness of Breath Last Admin: 09/24/17 01:17 Dose: 3 ml Albuterol/Ipratropium (Duoneb 3 Mg/0.5 Mg (3 Ml) Ud) 3 ml IH [id number] RAI Last Admin: 09/27/17 14:44 Dose: 3 ml Azithromycin (Zithromax) 500 mg PO DAILY [facility] PRN Reason: Protocol Last Admin: 09/27/17 10:25 Dose: 500 mg Benzocaine/Menthol (Cepacol Sore Throat) 1 chiquis MT Q2H PRN PRN Reason: Sore Throat Last Admin: 09/27/17 10:43 Dose: 1 chiquis Famotidine (Pepcid) 40 mg PO HS [facility] Last Admin: 09/26/17 21:26 Dose: 40 mg Fluticasone Propionate (Flonase) 1 actuation NS AMHS [facility] Last Admin: 09/27/17 10:24 Dose: 1 actuation Guaifenesin (Robitussin) 200 mg PO Q4H PRN PRN Reason: Cough and congestion Last Admin: 09/27/17 10:25 Dose: 200 mg Ceftriaxone Sodium (Rocephin 1 Gram Ivpb) 1 gm in 100 mls @ 100 mls/hr IVPB DAILY [facility] PRN Reason: Protocol Last Admin: 09/27/17 10:25 Dose: 100 mls/hr Ibuprofen (Motrin Tab) 400 mg PO Q6H PRN PRN Reason: Pain, moderate (4-7) Loratadine (Claritin) 10 mg PO DAILY [facility] Last Admin: 09/27/17 10:25 Dose: 10 mg Methylprednisolone (Solu-Medrol) 30 mg IVP Q12 [facility] Stop: 09/27/17 23:59 Last Admin: 09/27/17 10:25 Dose: 30 mg Methylprednisolone (Solu-Medrol) 20 mg IVP Q12 [facility] Montelukast Sodium (Singulair) 10 mg PO HS [facility] Last Admin: 09/26/17 21:26 Dose: 10 mg Nicotine (Nicoderm Cq) 1 patch TD DAILY PRN PRN Reason: URGE TO SMOKE Last Admin: 09/24/17 15:19 Dose: 1 patch Sodium Chloride ([place] Nasal [place]) 1 ml NS Q2H PRN PRN Reason: Nasal congestion Last Admin: 09/25/17 23:03 Dose: 1 spr - Labs Labs: 09/27/17 07:00 09/27/17 07:00 - Constitutional Appears: Non-toxic, No Acute Distress - Head Exam Head Exam: ATRAUMATIC, NORMOCEPHALIC - Eye Exam Eye Exam: EOMI, Normal appearance, PERRL - ENT Exam ENT Exam: Mucous Membranes Moist - Neck Exam Neck Exam: Normal Inspection - Respiratory Exam Respiratory Exam: Wheezes (improved since yesterday), NORMAL BREATHING PATTERN - Cardiovascular Exam Cardiovascular Exam: RRR, +S1, +S2 - GI/Abdominal Exam GI & Abdominal Exam: Soft, Normal Bowel Sounds. absent: Tenderness - Extremities Exam Extremities Exam: absent: Calf Tenderness, Pedal Edema - Neurological Exam Neurological Exam: Alert, Awake, Oriented x3 - Psychiatric Exam Psychiatric exam: Normal Affect, Normal Mood - Skin Skin Exam: Dry, Intact, Normal Color Assessment and Plan - Assessment and Plan (Free Text) Assessment: 51 yo F with PMH of asthma who was admitted for evaluation and treatment of SOB likely secondary to an exacerbation of her asthma with failed outpatient therapy. Patients respiratory status and exam have improved, however there continues to be bilateral wheezing. Plan: 1. Acute Asthma Exacerbation -Sputum culture shows normal oral victoria -IV Zithromax and Rocephin for empiric coverage -Duonebs Q4RESP RAI and Q2RESP PRN -Continue IV Solu-Medrol 30mg IV Q12H then decrease to 20mg IV Q12 tomorrow -Continue Singulair, Claritin, flonase and Pepcid PO -Robitussin PRN for cough and Motrin PRN for pain -Cepacol chiquis PRN for throat irritation -Tylenol PRN for fever -Continue supplemental oxygen via [place] at 2L/min -Patient advised to follow up with Pulm clinic after discharge 2. Tobacco Abuse -Nicotine patch PRN -Patient education provided of harmful effects of tobacco use and smoking cessation strongly advised with patient verbalizing understanding GI Prophylaxis: Pepcid DVT Prophylaxis: SCD's Patient seen and case discussed with attending, Dr. Guzman. <Amarilis Guzman - Last Filed: 09/28/17 18:49> Objective - Vital Signs/Intake and Output Vital Signs (last 24 hours): Temp Pulse Resp BP Pulse Ox 98.2 F 85 20 119/64 96 09/28/17 08:44 09/28/17 08:44 09/28/17 08:44 09/28/17 08:44 09/28/17 08:44 Intake and Output: 09/28/17 09/28/17 06:59 18:59 Intake Total 540 Output Total 0 Balance 540 - Labs Labs: 09/28/17 07:30 09/28/17 07:30 Attending/Attestation - Attestation I have personally seen and examined this patient.: Yes I have fully participated in the care of the patient.: Yes I have reviewed all pertinent clinical information, including history, physical exam and plan: Yes Notes (Text): I have seen and examined the patient at bedside. Agree with the above note with the following additions/ exceptions: Briefly this is 52 year old female with history of asthma, tobacco use who failed outpatient asthma treatment who was admitted for asthma/ COPD exacerbation. Patient reports that she still feels the same. She is still coughing a lot and is not able to take deep breaths. She became very short of breath today after walking upto the bathroom. Still have bilateral wheezing. Denies post tussive vomiting, fever, chills or any other complaints. Continue duonebs, tapering doses of solumedrol, zithromax and add rocephin, robitussin, mucomyst and singulair. Tobacco cessation counselling provided. Upon discharge patient will follow up with Dr Nino. Dr Amarilis Guzman
[2017-09-28] MEDS: Albuterol-Ipratrop 3 mg / 0.5 (3 ml) UD IH SCH ×3 (05:00→11:25)
[2017-09-28 07:59] LABS: BASO # 0.02 K/mm3 (0.0-2.0); BASO % 0.1 % (0.0-3.0); EOS % 0.1 % (1.5-5.0); GRAN # 10.66 (1.4-6.5); GRAN % 78.5 % (50.0-68.0); HEMOGLOBIN 15.1 g/dL (12.0-16.0); LYMPH # 2.4 (1.2-3.4); LYMPH % 17.4 % (22.0-35.0); MEAN CELL VOLUME 90.2 fl (80.0-105.0); MEAN CORPUSCULAR HEMOGLOBIN 29.7 pg (25.0-35.0); MONO # 0.5 (0.1-0.6); MONO % 3.9 % (1.0-6.0); RBC 5.08 10^6/uL (3.5-6.1); RED CELL DISTRIBUTION WIDTH 13.2 % (11.5-14.5); WHITE BLOOD COUNT 13.6 10^3/ul (4.5-11.0)
[2017-09-28 08:24] LABS: ALB/GLOB RATIO 1.2 (1.1-1.8); ALBUMIN 4.2 g/dL (3.0-4.8); ALT/SGPT 51 U/L (7-56); AST/SGOT 23 U/L (14-36); BLOOD UREA NITROGEN 26 mg/dL (7-21); CALCIUM 9.7 mg/dL (8.4-10.5); GFR AFRICAN-AMERICAN > 60; GFR NON-AFRICAN AMERICAN > 60
[2017-09-28 08:45] VITALS: BP 119/64; PULSE 85; TEMP 98.2; O2SAT 96
[2017-09-28] MEDS: guaiFENesin 200 mg/10 ml Syrup UD PO PRN (09:23)
[2017-09-28] MEDS: Benzocaine/Menthol (Cepacol) Lozenge MT PRN (09:23)
[2017-09-28] MEDS: Fluticasone Nasal 50 mcg/Spray NS SCH (09:24)
[2017-09-28] MEDS ORDERED: MethylPREDNISolone 40 mg Vial IVP SCH (10:00)
[2017-09-28] MEDS: cefTRIAXone 1 gm 1 GM/100 ML BAG IVPB SCH (11:35)
--- NOTE | 2017-09-28 17:57 | CP.PCM.DIS ---
<Citlalli Ervin - Last Filed: 09/28/17 17:54> Provider - Provider Date of Admission: 09/24/17 09:16 Attending physician: Amarilis Guzman MD Primary care physician: Dimitri Nino MD Time Spent in preparation of Discharge (in minutes): 45 Diagnosis - Discharge Diagnosis (1) Asthma exacerbation Status: Acute Hospital Course - Lab Results Lab Results: Micro Results 09/24/17 17:55 Sputum Gram Stain - Final 09/24/17 17:55 Sputum Sputum Culture - Final NORMAL ORAL [facility] Most Recent Lab Values WBC 13.6 10^3/ul (4.5-11.0) H 09/28/17 07:30 RBC 5.08 10^6/uL (3.5-6.1) 09/28/17 07:30 Hgb 15.1 g/dL (12.0-16.0) 09/28/17 07:30 Hct 45.8 % (36.0-48.0) 09/28/17 07:30 MCV 90.2 fl (80.0-105.0) 09/28/17 07:30 MCH 29.7 pg (25.0-35.0) 09/28/17 07:30 MCHC 33.0 g/dl (31.0-37.0) 09/28/17 07:30 RDW 13.2 % (11.5-14.5) 09/28/17 07:30 Plt Count 262 10^3/uL (120.0-450.0) 09/28/17 07:30 MPV 10.0 fl (7.0-11.0) 09/28/17 07:30 Gran % 78.5 % (50.0-68.0) H 09/28/17 07:30 Lymph % (Auto) 17.4 % (22.0-35.0) L 09/28/17 07:30 [place] % (Auto) 3.9 % (1.0-6.0) 09/28/17 07:30 Eos % (Auto) 0.1 % (1.5-5.0) L 09/28/17 07:30 Baso % (Auto) 0.1 % (0.0-3.0) 09/28/17 07:30 Gran # 10.66 (1.4-6.5) H 09/28/17 07:30 Lymph # 2.4 (1.2-3.4) 09/28/17 07:30 [place] # 0.5 (0.1-0.6) 09/28/17 07:30 Eos # 0.0 (0.0-0.7) 09/28/17 07:30 Baso # 0.02 K/mm3 (0.0-2.0) 09/28/17 07:30 pCO2 36 mm/Hg (35-45) 09/23/17 22:04 pO2 66.0 mm/Hg (80-100) L 09/23/17 22:04 HCO3 23.4 mmol/L (21-28) 09/23/17 22:04 ABG pH 7.42 (7.35-7.45) 09/23/17 22:04 ABG Total CO2 24.5 mmol.L (22-28) 09/23/17 22:04 ABG O2 Saturation 96.2 % (95-98) 09/23/17 22:04 ABG O2 Content 16.4 ML/dl (15-23) 09/23/17 22:04 ABG Base Excess -0.7 mmol/L (-2.0-3.0) 09/23/17 22:04 ABG Hemoglobin 12.4 g/dL (11.7-17.4) 09/23/17 22:04 ABG Carboxyhemoglobin 1.9 % (0.5-1.5) H 09/23/17 22:04 POC ABG HHb (Measured) 3.7 % (0-5) 09/23/17 22:04 ABG Methemoglobin 0.5 % (0.0-3.0) 09/23/17 22:04 ABG O2 Capacity 17.0 mL/dl (16-24) 09/23/17 22:04 Hgb O2 Saturation 93.9 % (95.0-98.0) L 09/23/17 22:04 FiO2 21.0 % 09/23/17 22:04 Sodium 139 mmol/L (132-148) 09/28/17 07:30 Potassium 5.1 mmol/L (3.6-5.0) H 09/28/17 07:30 Chloride 100 mmol/L (98-107) 09/28/17 07:30 Carbon Dioxide 27 mmol/L (21-33) 09/28/17 07:30 Anion Gap 17 (10-20) 09/28/17 07:30 BUN 26 mg/dL (7-21) H 09/28/17 07:30 Creatinine 0.7 mg/dl (0.7-1.2) 09/28/17 07:30 Est GFR ( Amer) > 60 09/28/17 07:30 Est GFR (Non-Af Amer) > 60 09/28/17 07:30 POC Glucose (mg/dL) 157 mg/dL (65-110) H 09/24/17 02:22 Random Glucose 110 mg/dL (70-110) 09/28/17 07:30 Hemoglobin A1c 6.0 % (4.2-6.5) 09/23/17 20:01 Calcium 9.7 mg/dL (8.4-10.5) 09/28/17 07:30 Phosphorus 4.1 mg/dL (2.5-4.5) 09/24/17 07:00 Magnesium 2.0 mg/dL (1.7-2.2) 09/24/17 07:00 Total Bilirubin 0.4 mg/dL (0.2-1.3) 09/28/17 07:30 AST 23 U/L (14-36) 09/28/17 07:30 ALT 51 U/L (7-56) 09/28/17 07:30 Alkaline Phosphatase 88 U/L (38-126) 09/28/17 07:30 Total Protein 7.6 g/dL (5.8-8.3) 09/28/17 07:30 Albumin 4.2 g/dL (3.0-4.8) 09/28/17 07:30 Globulin 3.4 gm/dL 09/28/17 07:30 Albumin/Globulin Ratio 1.2 (1.1-1.8) 09/28/17 07:30 Influenza Typ A,B (EIA) Negative for flu a/b (NEGATIVE) 09/24/17 22:00 - Hospital Course Hospital Course: 51 yo F with PMH of asthma who was admitted for evaluation and treatment of SOB likely secondary to an exacerbation of her asthma with failed outpatient therapy. Patient was treated with a course of IV steroids as well as nebulized breathing treatments, IV antibiotics, and antihistamines. Patient was severely compromised initially, but gradually improved. Today, patient feels better overall, and has been walking around the halls without difficulty. She denies any chest pain or shortness of breath, though does still have a slight wheeze. Patient was taken around the halls with pulse oximetry monitoring and did not desaturate or feel short of breath despite walking at a rapid pace. She was given one month supply of all her asthma medications and instructed to follow up in the [facility] [facility] clinic in one week for further monitoring and testing, and then discharged to home. Discharge Exam - Head Exam Head Exam: ATRAUMATIC, NORMOCEPHALIC - Eye Exam Eye Exam: EOMI, Normal appearance, PERRL - ENT Exam ENT Exam: Mucous Membranes Moist - Neck Exam Neck exam: Normal Inspection - Respiratory Exam Respiratory Exam: Wheezes (significantly improved, though still present), NORMAL BREATHING PATTERN - Cardiovascular Exam Cardiovascular Exam: REGULAR RHYTHM, RRR, +S1, +S2 - GI/Abdominal Exam GI & Abdominal Exam: Normal Bowel Sounds, Soft. absent: Tenderness - Extremities Exam Extremities exam: normal inspection - Neurological Exam Neurological exam: Alert, CN II-XII Intact, Oriented x3 - Psychiatric Exam Psychiatric exam: Normal Affect, Normal Mood - Skin Skin Exam: Dry, Intact, Normal Color Discharge Plan - Discharge Medications Prescriptions: Albuterol HFA [Ventolin HFA 90 mcg/actuation (8 g)] 2 puff INH PRN PRN #1 inhaler PRN Reason: Wheezing Famotidine [Pepcid] 40 mg PO HS #6 tab Fluticasone Nasal [Flonase] 1 actuation NS AMHS #1 bottle Fluticasone/Salmeterol 100/50 [Advair Diskus 100/50] 1 puff IH Q12 #1 dsk Montelukast [Singulair] 10 mg PO HS #30 tab predniSONE [predniSONE Tab] 40 mg PO DAILY 5 Days #5 tab - Follow Up Plan Condition: STABLE Disposition: HOME/ ROUTINE Instructions: Asthma (DC), Pneumococcal Vaccine for Adults (DC), Cigarette Smoking and Your Health (GEN), Influenza Vaccine (DC), Dyspnea (GEN) Additional Instructions: 1. Continue taking 40mg prednisone daily for 5 more days, even if you feel better; continue taking pepcid while taking prednisone 2. Use the advair disk inhaler twice daily every day 3. Use your nebulized albuterol daily; Use flonase twice daily; Continue taking Singulair (Montelukast) daily 4. Use the albuterol inhaler as needed for wheezing or shortness of breath; if symptoms are not controlled, come to the ER 5. Purchase Claritin or Landy OTC and use daily 6. Follow up with [facility] clinic within one week for pulmonary function studies and routine follow up 7. For any new or worsening concerns, return to ER Referrals: Dimitri Nino MD [Primary Care Provider] - <Amarilis Guzman - Last Filed: 09/28/17 18:52> Provider - Provider Date of Admission: 09/24/17 09:16 Attending physician: Amarilis Guzman MD Primary care physician: Dimitri Nino MD Hospital Course - Lab Results Lab Results: Micro Results 09/24/17 17:55 Sputum Gram Stain - Final 09/24/17 17:55 Sputum Sputum Culture - Final NORMAL ORAL [place] Most Recent Lab Values WBC 13.6 10^3/ul (4.5-11.0) H 09/28/17 07:30 RBC 5.08 10^6/uL (3.5-6.1) 09/28/17 07:30 Hgb 15.1 g/dL (12.0-16.0) 09/28/17 07:30 Hct 45.8 % (36.0-48.0) 09/28/17 07:30 MCV 90.2 fl (80.0-105.0) 09/28/17 07:30 MCH 29.7 pg (25.0-35.0) 09/28/17 07:30 MCHC 33.0 g/dl (31.0-37.0) 09/28/17 07:30 RDW 13.2 % (11.5-14.5) 09/28/17 07:30 Plt Count 262 10^3/uL (120.0-450.0) 09/28/17 07:30 MPV 10.0 fl (7.0-11.0) 09/28/17 07:30 Gran % 78.5 % (50.0-68.0) H 09/28/17 07:30 Lymph % (Auto) 17.4 % (22.0-35.0) L 09/28/17 07:30 [place] % (Auto) 3.9 % (1.0-6.0) 09/28/17 07:30 Eos % (Auto) 0.1 % (1.5-5.0) L 09/28/17 07:30 Baso % (Auto) 0.1 % (0.0-3.0) 09/28/17 07:30 Gran # 10.66 (1.4-6.5) H 09/28/17 07:30 Lymph # 2.4 (1.2-3.4) 09/28/17 07:30 [place] # 0.5 (0.1-0.6) 09/28/17 07:30 Eos # 0.0 (0.0-0.7) 09/28/17 07:30 Baso # 0.02 K/mm3 (0.0-2.0) 09/28/17 07:30 pCO2 36 mm/Hg (35-45) 09/23/17 22:04 pO2 66.0 mm/Hg (80-100) L 09/23/17 22:04 HCO3 23.4 mmol/L (21-28) 09/23/17 22:04 ABG pH 7.42 (7.35-7.45) 09/23/17 22:04 ABG Total CO2 24.5 mmol.L (22-28) 09/23/17 22:04 ABG O2 Saturation 96.2 % (95-98) 09/23/17 22:04 ABG O2 Content 16.4 ML/dl (15-23) 09/23/17 22:04 ABG Base Excess -0.7 mmol/L (-2.0-3.0) 09/23/17 22:04 ABG Hemoglobin 12.4 g/dL (11.7-17.4) 09/23/17 22:04 ABG Carboxyhemoglobin 1.9 % (0.5-1.5) H 09/23/17 22:04 POC ABG HHb (Measured) 3.7 % (0-5) 09/23/17 22:04 ABG Methemoglobin 0.5 % (0.0-3.0) 09/23/17 22:04 ABG O2 Capacity 17.0 mL/dl (16-24) 09/23/17 22:04 Hgb O2 Saturation 93.9 % (95.0-98.0) L 09/23/17 22:04 FiO2 21.0 % 09/23/17 22:04 Sodium 139 mmol/L (132-148) 09/28/17 07:30 Potassium 5.1 mmol/L (3.6-5.0) H 09/28/17 07:30 Chloride 100 mmol/L (98-107) 09/28/17 07:30 Carbon Dioxide 27 mmol/L (21-33) 09/28/17 07:30 Anion Gap 17 (10-20) 09/28/17 07:30 BUN 26 mg/dL (7-21) H 09/28/17 07:30 Creatinine 0.7 mg/dl (0.7-1.2) 09/28/17 07:30 Est GFR ( Amer) > 60 09/28/17 07:30 Est GFR (Non-Af Amer) > 60 09/28/17 07:30 POC Glucose (mg/dL) 157 mg/dL (65-110) H 09/24/17 02:22 Random Glucose 110 mg/dL (70-110) 09/28/17 07:30 Hemoglobin A1c 6.0 % (4.2-6.5) 09/23/17 20:01 Calcium 9.7 mg/dL (8.4-10.5) 09/28/17 07:30 Phosphorus 4.1 mg/dL (2.5-4.5) 09/24/17 07:00 Magnesium 2.0 mg/dL (1.7-2.2) 09/24/17 07:00 Total Bilirubin 0.4 mg/dL (0.2-1.3) 09/28/17 07:30 AST 23 U/L (14-36) 09/28/17 07:30 ALT 51 U/L (7-56) 09/28/17 07:30 Alkaline Phosphatase 88 U/L (38-126) 09/28/17 07:30 Total Protein 7.6 g/dL (5.8-8.3) 09/28/17 07:30 Albumin 4.2 g/dL (3.0-4.8) 09/28/17 07:30 Globulin 3.4 gm/dL 09/28/17 07:30 Albumin/Globulin Ratio 1.2 (1.1-1.8) 09/28/17 07:30 Influenza Typ A,B (EIA) Negative for flu a/b (NEGATIVE) 09/24/17 22:00 Attending/Attestation - Attestation I have personally seen and examined this patient.: Yes I have fully participated in the care of the patient.: Yes I have reviewed all pertinent clinical information, including history, physical exam and plan: Yes Notes (Text): I have seen and examined the patient at bedside. Agree with the above note with the following additions/ exceptions: Briefly this is 52 year old female with history of asthma, tobacco use who failed outpatient asthma treatment who was admitted for asthma/ COPD exacerbation. Patient reports that she feels a lot better. She was able to walk in the hallway without any episodes of dyspnea or hypoxia. Her oxygen saturations remained fine. She has mild wheezing however she appears very comfortable and wants to go home. Denies post tussive vomiting , fever, chills or any other complaints. Patient will be sent home on albuterol MDI, advair, singulair, flonase, short course of steroids and pepcid. Tobacco cessation counselling provided. Upon discharge patient will follow up with Dr Nino or she can follow up in [facility] clinic. Dr Amarilis Guzman
== END 2017-09-28 18:18 | disposition home or self-care (01) | DRG 202 ==
LOC: ED 15:43 → ERH 09-24 00:31 → 5RSO 09-24 01:54 → OBSVTOIN 09-24 09:16 → 5RSO 09-24 17:04
PROVIDERS: ADMIT Internal Medicine; ATTEND Hospitalist
DX: J45.901 Unspecified asthma with (acute) exacerbation (principal); J44.1 Chronic obstructive pulmonary disease with (acute) exacerbation; F17.210 Nicotine dependence, cigarettes, uncomplicated; M81.0 Age-related osteoporosis without current pathological fracture